=== PATIENT | female | born 1950 | race Caucasian/White ===

== ENCOUNTER 2018-08-04 17:15 | Emergency (ER) | payer MEDICARE ==
--- NOTE | 2018-08-04 17:27 | UC ---
Shortness of Breath HPI - HPI Summary HPI Summary: C/O shortness of breath off/on. Has a h/o atrial fibrillation. Worse this afternoon. - History of Current Complaint Stated Complaint: SOB Time Seen by Provider: 08/04/18 17:18 Hx Obtained From: Patient Onset/Duration: Sudden Onset Timing: Constant Alleviating Factors: Nothing Associated Signs & Symptoms: Negative: Chest Pain Unrelated to Cough PMH/Surg Hx/FS Hx/Imm Hx Cardiovascular History: Hypertension, Atrial Fibrillation - Family History Known Family History: Positive: Cardiac Disease - Social History Occupation: Retired Lives: With Family Review of Systems All Other Systems Reviewed And Are Negative: Yes Respiratory: Positive: Shortness Of Breath Cardiovascular: Positive: Palpitations Physical Exam Triage Information Reviewed: Yes Appearance: No Pain Distress, Well-Nourished Vital Signs Reviewed: Yes Eye Exam: Other Respiratory: Positive: Respiratory distress Cardiovascular: Positive: Tachycardia Musculoskeletal: Positive: Edema @ - bilateral Neurological Exam: Normal Psychological Exam: Normal Skin Exam: Normal Shortness of Breath Dx - Differential Dx/Diagnosis Differential Diagnosis/HQI/PQRI: Asthma, [place], Pulmonary Edema, Unstable Angina Provider Diagnosis: Rapid atrial fibrillation - Physician Notification/Consults Discussed Patient Care With: Stacie Cowan NP Time Discussed With Above Provider: 17:36 Instructed by Provider To: Transfer - to [facility] Discharge - Sign-Out/Discharge Documenting (check all that apply): Patient Departure All imaging exams completed and their final reports reviewed: No Studies - Discharge Plan Condition: Guarded Disposition: TRANS HIGHER LVL OF CARE FAC - Billing Disposition and Condition Condition: GUARDED Disposition: Trans Higher Lvl of Care Fac
[2018-08-04] MEDS ORDERED: NS 0.9% 1000 ML** 1,000 ML IV ONE (17:30)
[2018-08-04 17:55] VITALS: BP 74/59
== END 2018-08-04 17:41 | disposition short-term general hospital (02) ==
LOC: UCCORT 17:15
DX: I48.91 Unspecified atrial fibrillation (principal); I10 Essential (primary) hypertension
CPT/HCPCS: 93005; 96360; 99203; G0463